=== PATIENT | female | born 1935 | race Caucasian/White ===

== ENCOUNTER 2017-03-05 21:12 | Emergency (ER) | payer MEDICARE, OTHER ==
[~2017-03-05 21:12] MED LIST: APRISO0.375 GM PO; CALCIUM 600 +1 EAC5 PO; COUMADIN5 MG PO; FIBERCON1 EACH PO; LACTINEX1 EACH PO; LOVENOX100 MG/1 M SC; NORVASC 5MG TABL5 MG PO; PRAVACHOL40 MG PO; PROTONIX20 MG PO; SYNTHROID50 MCG PO; VITAMIN D31000 UNI1 PO; ZESTRIL20 MG PO
== END 2017-03-05 22:10 | disposition home or self-care (01) ==
LOC: FER 21:12
DX: T78.40XA Allergy, unspecified, initial encounter (principal); K57.90 Diverticulosis of intestine, part unspecified, without perforation or abscess without bleeding; E03.9 Hypothyroidism, unspecified; I10 Essential (primary) hypertension; K21.9 Gastro-esophageal reflux disease without esophagitis; Z86.718 Personal history of other venous thrombosis and embolism; Z86.711 Personal history of pulmonary embolism; Z88.2 Allergy status to sulfonamides; Z79.01 Long term (current) use of anticoagulants; Z79.899 Other long term (current) drug therapy
CPT/HCPCS: 99283

== ENCOUNTER 2021-12-30 12:25 | Day surgery (SDCO) | payer MEDICARE, OTHER ==
[~2021-12-30] VITALS: Ht 165.1 cm; Wt 94.3 kg
[~2021-12-30 12:25] MED LIST changes: +BENTYL10 MG PO; +COLESTID 1GM TAB1 GM PO; +CULTURELLE CAP1 EACH PO; +ELIQUIS2.5 MG PO; -FIBERCON1 EACH PO; +FIBERCON625 MG PO; +LOSARTAN-HCTZ1 EACH PO; +LOVAZA1 GM PO; +MAG-OXIDE 400M400 MG PO; +OLMESARTAN HCTZ PO; +OXYCODONE-ACET1 EAC1 PO; +PREDNISONE 10MG10 MG PO; -VITAMIN D31000 UNI1 PO; +VITAMIN D325 MC1 PO; +XARELTO15 MG PO; +ZOFRAN4 MG PO
[2021-12-30 13:43] LABS: BASOPHIL 0.4 % (0-2); EOSINOPHIL 0.6 % (0-7); HCT 38.1 % (37.0-47.0); HGB 12.9 g/dl (12.5-16.0); MCH 31.3 pg (25.0-31.0); MCHC 33.9 g/dL (32.0-36.0); MCV 92.5 fL (78.0-100.0); MPV 8.3 fL (6.0-9.5); NEUTROPHIL 79.4 % (41-80); NRBC 0; PLT 209 K/uL (150-400); RBC 4.12 M/uL (4.20-5.40); RDW 12.7 % (11.5-14.0); WBC 6.8 K/uL (4.0-10.5)
[2021-12-30 13:44] LABS: BILIRUBIN NEGATIVE (NEGATIVE); BLOOD TRACE-INTACT Ery/uL (NEGATIVE); CLARITY CLEAR (CLEAR); COLOR YELLOW (YELLOW); GLUCOSE (U) NORMAL (NORMAL); LEUKOCYTES TRACE Leu/uL (NEGATIVE); NITRITE NEGATIVE (NEGATIVE); PROTEIN TRACE (LOW) mg/dL (NEGATIVE); SPECIFIC GRAVITY 1.015 (1.001-1.030); UROBILINOGEN 0.2 mg/dL (0.2-1.0)
[2021-12-30 14:32] LABS: ALBUMIN 3.7 g/dL (3.4-5.0); BILIRUBIN - TOTAL 0.5 mg/dL (0.2-1.0); CREATININE 1.21 mg/dL (0.51-0.95); GLOBULIN (CALCULATION) 3.8 g/dL; POTASSIUM 3.7 mmol/L (3.5-5.1); TOTAL PROTEIN 7.5 g/dL (6.4-8.2)
[2021-12-30 14:47] LABS: MAGNESIUM 1.5 mg/dL (1.8-2.4)
[2021-12-31 07:35] LABS: HCT 36.8 % (37.0-47.0); HGB 12.5 g/dl (12.5-16.0); MCH 31.3 pg (25.0-31.0); MPV 8.3 fL (6.0-9.5); RDW 12.6 % (11.5-14.0); WBC 4.7 K/uL (4.0-10.5)
[2021-12-31 07:58] LABS: CREATININE 1.07 mg/dL (0.51-0.95); POTASSIUM 4.1 mmol/L (3.5-5.1)
--- NOTE | 2021-12-31 10:39 | NUR ---
12/31/21 Ms. Huerta lives at home with her spouse. Duke Lindo = PCP. She has a cane, rw, 3in1, and s. stool. PT has recommended HH. - The [facility] are able to meet their financial obligations. - A referral was made to [facility] per patient choice for PT and nursing.
== END 2021-12-31 11:56 | disposition home health service (06) ==
LOC: FER 12:25 → FMS 16:55
PROVIDERS: Physician Assistant; ADMIT Family Medicine
DX: I13.10 Hypertensive heart and chronic kidney disease without heart failure, with stage 1 through stage 4 chronic kidney disease, or unspecified chronic kidney disease (principal); N18.2 Chronic kidney disease, stage 2 (mild); R53.1 Weakness; E03.9 Hypothyroidism, unspecified; E87.1 Hypo-osmolality and hyponatremia; E83.42 Hypomagnesemia; K21.9 Gastro-esophageal reflux disease without esophagitis; Z20.822 Contact with and (suspected) exposure to COVID-19; Z88.2 Allergy status to sulfonamides; Z79.899 Other long term (current) drug therapy
CPT/HCPCS: 36415; 70450; 71045; 80048; 80053; 80061; 81001; 83735; 83880; 84145; 84443; 84484; 85025; 93005; 94010; 97162; 97165; G0378; J2060; J3475; J7030; U0002